=== PATIENT | female | born 1990 | race American Indian/Alaskan Native ===

== ENCOUNTER 2017-03-12 13:37 | Emergency (ER) | payer BC, OTHER ==
[2017-03-12] MEDS ORDERED: ULTRAM PO ONE (20:04)
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
[2017-03-12 20:32] VITALS: BP 114/80
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
== END 2017-03-12 21:37 | disposition home or self-care (01) ==
LOC: ED 13:37
DX: R07.81 Pleurodynia (principal); R07.89 Other chest pain; F17.200 Nicotine dependence, unspecified, uncomplicated; V89.2XXA Person injured in unspecified motor-vehicle accident, traffic, initial encounter; Y93.89 Activity, other specified; Y99.8 Other external cause status; Y92.488 Other paved roadways as the place of occurrence of the external cause